=== PATIENT | male | born 1990 | race Caucasian/White ===

== ENCOUNTER 2017-04-09 22:44 | Emergency (ER) | payer SELFPAY ==
[2017-04-09 23:00] LABS: EOSINOPHIL (%) 0.9 % (0-5); EOSINOPHIL COUNT 0.1 K/uL (0-0.3); HEMATOCRIT 40.4 % (38.0-50.0); IMMATURE GRANULOCYTE (%) 0.6 % (0.0-0.7); IMMATURE GRANULOCYTE COUNT 0.1 K/uL; INSTRUMENT ABS NEUTROPHIL CT 8.7 K/uL; LYMPHOCYTE COUNT 1.6 K/uL (1.0-2.8); MCH 27.9 PG (29.0-34.0); MCHC 34.2 G/DL (30.0-36.0); MCV 81.8 FL (86-99); MEAN PLAT.VOLUME 8.9 uM^3 (9.0-12.4); MONOCYTE (%) 11.9 % (3-12); MONOCYTE COUNT 1.4 K/uL (0-0.8); NEUTROPHIL COUNT 8.7 K/uL (1.8-6.4); PLATELET COUNT 260 K/uL (156-360); RBC DIS.WIDTH-SD 38.5 % (39-53); RED BLOOD COUNT 4.94 M/uL (4.00-5.50); WHITE BLOOD COUNT 11.9 K/uL (4.1-10.2)
[2017-04-09 23:11] LABS: AMYLASE 26 IU/L (1-118); CHLORIDE 99 mEq/L (99-109); POTASSIUM 3.6 mEq/L (3.7-5.4); SODIUM 136 mEq/L (136-147)
[2017-04-09 23:12] LABS: GLUCOSE 110 mg/dL (70-99)
[2017-04-09 23:14] LABS: ANION GAP 12 MEQ/L (2-14)
[2017-04-09 23:16] LABS: GFR ESTIMATE (CALCULATED) > 59 mL/min/; SERUM ETHYL ALCOHOL < 10 mg/dL
[2017-04-09 23:17] LABS: UREA NITROGEN (BUN) 12 mg/dL (9-23)
[2017-04-09 23:19] LABS: LIPASE 6 U/L (1.0-51.0)
[2017-04-10] MEDS ORDERED: PROVENTIL HFA6.7 GM IH (00:35)
[2017-04-10] MEDS ORDERED: NAPROSYN500 MG PO (00:35)
[2017-04-10 01:15] LABS: CREATINE KINASE 822 IU/L (1-294)
[2017-04-10 01:18] LABS: TROP-I INTERPRETATION NEGATIVE; TROPONIN-I < 0.01 ng/mL (0.0-0.30)
== END 2017-04-10 02:44 | disposition home or self-care (01) ==
LOC: TRA 22:44 → EME 22:44
PROVIDERS: Emergency Medicine
DX: S22.39XA Fracture of one rib, unspecified side, initial encounter for closed fracture (principal); E86.0 Dehydration; W17.89XA Other fall from one level to another, initial encounter
CPT/HCPCS: 70450; 70486; 71260; 72125; 72129; 72132; 74177; 80048; 81003; 82150; 82550; 83690; 84484; 85025; 86900; 86901; 93005; 99281; 99284; G0480; J2405; J3010; J7030

== ENCOUNTER 2017-04-12 10:37 | Emergency (ER) | payer SELFPAY ==
[~2017-04-12] VITALS: Ht 170.2 cm; Wt 85.0 kg
[~2017-04-12 10:37] MED LIST: NAPROSYN500 MG PO; PROVENTIL HFA6.7 GM IH
[2017-04-12 16:10] VITALS: BP 127/68
== END 2017-04-12 16:11 | disposition home or self-care (01) ==
LOC: EME → EDBD 10:37 → EME 10:37
DX: T40.601A Poisoning by unspecified narcotics, accidental (unintentional), initial encounter (principal); F17.200 Nicotine dependence, unspecified, uncomplicated
CPT/HCPCS: 70450; 99281; 99283; J2310